=== PATIENT | male | born 1945 | race Caucasian/White ===

== ENCOUNTER 2017-10-07 10:07 | Outpatient (CLI) | payer OTHER ==
[~2017-10-07 10:07] MED LIST: CATAFLAM50 MG PO; COZAAR25 MG
== END 2017-10-07 10:09 | disposition home or self-care (01) ==
LOC: SONOGRAMA 10:07
DX: N18.9 Chronic kidney disease, unspecified (principal)

== ENCOUNTER 2018-01-07 12:25 | Outpatient (CLI) | payer OTHER | END 2018-01-07 16:01 | disposition home or self-care (01) | LOC: RAD 12:25 | DX: M25.561 Pain in right knee (principal) ==

== ENCOUNTER 2020-09-14 11:04 | Emergency (ER) | payer OTHER ==
[~2020-09-14] VITALS: Ht 182.9 cm; Wt 81.6 kg
[2020-09-14] MEDS ORDERED: GLIMEPIRIDE2 MG PO (11:18)
== END 2020-09-14 14:08 | disposition home or self-care (01) ==
LOC: ER 11:04
DX: L03.012 Cellulitis of left finger (principal); S61.24 Puncture wound with foreign body of finger without damage to nail; V00-Y99 External causes of morbidity

== ENCOUNTER → 2021-02-23 10:59 | Outpatient (CLI) | payer OTHER ==
[~2021-02-23 10:59] MED LIST changes: +GLIMEPIRIDE2 MG PO
== END | disposition home or self-care (01) ==
LOC: RAD 10:59
PROVIDERS: ATTEND Internal Medicine Nephrology
DX: M25.811 Other specified joint disorders, right shoulder (principal); S49.90XA Unspecified injury of shoulder and upper arm, unspecified arm, initial encounter

== ENCOUNTER 2021-10-03 09:37 | Outpatient (CLI) | payer OTHER | END 2021-10-03 09:41 | disposition home or self-care (01) | LOC: RAD 09:37 | DX: M25.561 Pain in right knee (principal); M25.562 Pain in left knee ==

== ENCOUNTER → 2021-10-04 09:11 | Outpatient (CLI) | payer OTHER | END | disposition home or self-care (01) | LOC: LAB 09:11 | PROVIDERS: ATTEND Internal Medicine Nephrology | DX: R80.9 Proteinuria, unspecified (principal); I12.9 Hypertensive chronic kidney disease with stage 1 through stage 4 chronic kidney disease, or unspecified chronic kidney disease ==

== ENCOUNTER 2022-10-28 09:47 | Emergency (ER) | payer OTHER ==
[~2022-10-28] VITALS: Ht 175.3 cm; Wt 74.8 kg
== END 2022-10-28 14:57 | disposition home or self-care (01) ==
LOC: ER 09:47
DX: L02.415 Cutaneous abscess of right lower limb (principal); E11.9 Type 2 diabetes mellitus without complications; Z79.84 Long term (current) use of oral hypoglycemic drugs

== ENCOUNTER 2023-05-20 18:56 | Emergency (ER) | payer OTHER ==
[~2023-05-20] VITALS: Ht 182.9 cm; Wt 77.1 kg
[2023-05-20 20:49] LABS: HEMATOCRIT 33.7 % (39.0-48.0); HEMOGLOBIN 10.9 g/dL (13-16.00); MEAN CELL VOLUME 90.6 fL (80.0-100.00); MEAN CORPUSCULAR HEMOGLOBIN 29.3 pg (27.00-32.0); MEAN CORPUSCULAR HGB CONC 32.3 g/dl (32.0-36.0); PLATELET COUNT 191 K/uL (150-450); RED BLOOD COUNT 3.71 M/uL (4.00-6.00)
[2023-05-20 20:50] LABS: PH,URINE 5.5 (5.0-8.0); URINE APPEARANCE Clear; URINE BILIRRUBIN Negative (NEGATIVE); URINE BLOOD Trace; URINE COLOR Yellow; URINE GLUCOSE Negative (NEGATIVE); URINE LEUKOCYTE Negative; URINE NITRATE Negative; URINE PROTEIN Negative (NEGATIVE); URINE UROBILINOGEN 0.2 E.U./dl
[2023-05-20 20:59] LABS: URINE BACTERIA 0 uL (0.0-1933); URINE EPITHELIAL CELLS 0.9 uL (0.0-38.8); URINE RBC 0.2 uL (0.0-20.8); URINE WBC 3.2 uL (0.0-23.2)
[2023-05-20 21:14] LABS: CALCIUM 9.3 mg/dL (8.5-10.1); CREATININE SERUM 1.68 mg/dL (0.70-1.30); GFR 39.51; POTASSIUM 4.2 mEq/L (3.5-5.1)
[2023-05-21 01:26] LABS: INR 1.24; PARTIAL THROMBOPLASTIN TIME 34.5 SECONDS (22.0-34.0); PROTHROMBIN TIME 12.8 SECONDS (9.0-11.5)
== END 2023-05-21 11:19 | disposition home or self-care (01) ==
LOC: ER 18:56
PROVIDERS: General Practice
DX: E11.649 Type 2 diabetes mellitus with hypoglycemia without coma (principal); Z79.84 Long term (current) use of oral hypoglycemic drugs; Z20.822 Contact with and (suspected) exposure to COVID-19

== ENCOUNTER 2024-10-25 10:08 | Inpatient (IN) | payer OTHER ==
[~2024-10-25] VITALS: Ht 182.9 cm; Wt 63.5 kg
[2024-10-25 12:58] LABS: HEMATOCRIT 28.3 % (39.0-48.0); HEMOGLOBIN 9.9 g/dL (13-16.00); MEAN CELL VOLUME 89.2 fL (80.0-100.00); MEAN CORPUSCULAR HEMOGLOBIN 31.3 pg (27.00-32.0); MEAN CORPUSCULAR HGB CONC 35.1 g/dl (32.0-36.0); PLATELET COUNT 286 K/uL (150-450); RED BLOOD COUNT 3.17 M/uL (4.00-6.00); RED CELL DISTRIBUTION WIDTH 13.1 % (11.5-14.5)
[2024-10-25 13:17] LABS: ALBUMIN 3.3 gm/dL (3.4-5.0); BILIRUBIN TOTAL 0.41 mg/dL (0.3-1.2); CREATININE SERUM 3.63 mg/dL (0.70-1.30); GFR 16.2; GLOBULINA 4.3 G/DL (2.4-3.5); POTASSIUM 5.51 mEq/L (3.5-5.1); TOTAL PROTEIN 7.6 gm/dL (6.4-8.2)
[2024-10-25 13:30] LABS: CALCIUM 13.9 mg/dL (8.5-10.1)
[2024-10-25] MEDS ORDERED: 0.9 % SODIUM CHLORIDE 1,000 ML IV ONE (13:45)
[2024-10-25] MEDS ORDERED: LEVALBUTEROL HCL 1.25 MG/3 ML SOLUTION IH ONE (14:30)
[2024-10-25] MEDS ORDERED: PIPERACILLIN/TAZOBACTAM SODIUM 3.375 GM VIAL IV ONE (14:30)
[2024-10-25] MEDS ORDERED: 0.9 % SODIUM CHLORIDE 1,000 ML IV SCH (16:15)
[2024-10-25] MEDS ORDERED: SODIUM POLYSTYRENE SULFONATE 30G/8 TSP PO STA (16:19)
[2024-10-25] MEDS ORDERED: INSULIN LISPRO 1,000 UNIT/10 ML UNITS SUBCUTANEO PRN (16:45)
[2024-10-25] MEDS ORDERED: DEXTROSE 50 % IN WATER 0.5 G/ML DISP.SYRIN IV PRN (16:45)
[2024-10-25] MEDS ORDERED: SIMVASTATIN 20 MG TABLET PO SCH (17:00)
[2024-10-25 17:58] LABS: ABG PH 7.409 (7.35-7.45); ABG PO2 76.1 mmHg (80-100); ABG pCO2 46.9 mmHg (35-45)
[2024-10-25 17:59] LABS: BASE EXCESS 3.5 mmol/l; Tco2 30.4 mmol/l; allen test SATISFACTORY; o2 21 %; puncture site RADIAL RIGHT
[2024-10-25 18:01] LABS: SaO2 95.3 %
[2024-10-25 19:17] LABS: CHOL HDL RATIO 3.2 (0-5.0)
[2024-10-25 19:26] LABS: ALBUMIN 3.2 gm/dL (3.4-5.0); BILIRUBIN TOTAL 0.45 mg/dL (0.3-1.2); CREATININE SERUM 3.35 mg/dL (0.70-1.30); GFR 17.77; GLOBULINA 3.8 G/DL (2.4-3.5); PHOSPHOROUS 4.4 mg/dL (2.5-4.9); POTASSIUM 4.4 mEq/L (3.5-5.1); TSH 4.5 uIU/mL (0.358-3.74)
[2024-10-25 21:20] VITALS: BP 164/75; O2SAT 100
[2024-10-25] MEDS ORDERED: NIFEDIPINE 30 MG TAB.SA.OSM PO SCH (22:32)
[2024-10-26] VITALS (9 sets, daily range): BP systolic 121–167; BP diastolic 52–74; O2SAT 97–100
[2024-10-26 03:02] LABS: ALBUMIN 2.8 gm/dL (3.4-5.0); BILIRUBIN TOTAL 0.44 mg/dL (0.3-1.2); CALCIUM 12.3 mg/dL (8.5-10.1); CREATININE SERUM 3.19 mg/dL (0.70-1.30); GFR 18.8; GLOBULINA 3.6 G/DL (2.4-3.5); POTASSIUM 4.76 mEq/L (3.5-5.1); TOTAL PROTEIN 6.4 gm/dL (6.4-8.2)
[2024-10-26] MEDS ORDERED: LEVOTHYROXINE SODIUM 25 MCG TABLET PO SCH (06:00)
[2024-10-26 08:40] LABS: HEMATOCRIT 27.7 % (39.0-48.0); HEMOGLOBIN 9.5 g/dL (13-16.00); MEAN CELL VOLUME 88.1 fL (80.0-100.00); MEAN CORPUSCULAR HEMOGLOBIN 30.4 pg (27.00-32.0); MEAN CORPUSCULAR HGB CONC 34.5 g/dl (32.0-36.0); PLATELET COUNT 258 K/uL (150-450); RED BLOOD COUNT 3.14 M/uL (4.00-6.00); RED CELL DISTRIBUTION WIDTH 13.2 % (11.5-14.5)
[2024-10-26] MEDS ORDERED: AZITHROMYCIN 500 MG VIAL IV SCH (09:00)
[2024-10-26] MEDS ORDERED: TAMSULOSIN HCL 0.4 MG CAP PO SCH (09:00)
[2024-10-26] MEDS ORDERED: IRON FUM,PS/FOLIC/BCOMP,C NO.9 1 CAP CAPSULE PO SCH (09:00)
[2024-10-26] MEDS ORDERED: CEFTRIAXONE SODIUM 2,000 MG VIAL IV SCH (09:00)
[2024-10-26] MEDS ORDERED: ENOXAPARIN SODIUM 30 MG/0.3 ML SYRINGE SUBCUTANEO SCH (09:00)
[2024-10-26] MEDS ORDERED: PANTOPRAZOLE SODIUM 40 MG/VIAL VIAL IV SCH (09:00)
[2024-10-26 09:15] LABS: ALBUMIN 3.1 gm/dL (3.4-5.0); BILIRUBIN TOTAL 0.43 mg/dL (0.3-1.2); CALCIUM 12.5 mg/dL (8.5-10.1); CREATININE SERUM 3.07 mg/dL (0.70-1.30); GFR 19.65; GLOBULINA 3.9 G/DL (2.4-3.5); POTASSIUM 3.96 mEq/L (3.5-5.1)
[2024-10-26] MEDS ORDERED: FEBUXOSTAT 40 MG TABLET PO SCH (10:18)
[2024-10-26 11:31] LABS: URINE WBC 4.7 uL (0.0-23.2)
[2024-10-26 11:32] LABS: URINE EPITHELIAL CELLS 0.4 uL (0.0-38.8); URINE RBC 1.6 uL (0.0-20.8)
[2024-10-26 11:52] LABS: PH,URINE 6.5 (5.0-8.0); URINE APPEARANCE Clear; URINE BILIRRUBIN Negative (NEGATIVE); URINE BLOOD Trace; URINE COLOR Yellow; URINE GLUCOSE Negative (NEGATIVE); URINE KETONE Negative (NEGATIVE); URINE LEUKOCYTE Negative; URINE NITRATE Negative; URINE PROTEIN Trace (NEGATIVE); URINE UROBILINOGEN 0.2 E.U./dl
[2024-10-26 19:43] LABS: TP PLEURAL FLUID 4.7 g/dl
[2024-10-26 19:58] LABS: PLEURAL FLUID APPEARANCE CLOUDY; PLEURAL FLUID COLOR YELLOW
[2024-10-26 20:16] LABS: MONONUCLEAR 87 %; POLYMORPHONUCLEAR 13 %
[2024-10-26 23:38] LABS: ALBUMIN 2.7 gm/dL (3.4-5.0); BILIRUBIN TOTAL 0.33 mg/dL (0.3-1.2); GFR 20.74; GLOBULINA 3.6 G/DL (2.4-3.5); POTASSIUM 4.02 mEq/L (3.5-5.1); TOTAL PROTEIN 6.3 gm/dL (6.4-8.2)
[2024-10-26 23:39] LABS: CREATININE SERUM 2.93 mg/dL (0.70-1.30)
[2024-10-27 04:00] VITALS: BP 143/63; O2SAT 100
[2024-10-27 07:27] VITALS: BP 157/92; O2SAT 98
[2024-10-27 09:08] LABS: IMMUNOGLOBULIN A 609 mg/dL (61-437); IMMUNOGLOBULIN G 1579 mg/dL (603-1613); IMMUNOGLOBULIN M 63 mg/dL (15-143)
[2024-10-27 11:21] VITALS: BP 167/83; O2SAT 100
[2024-10-27 12:00] VITALS: BP 168/74; O2SAT 100
[2024-10-27] MEDS ORDERED: NIFEDIPINE 30 MG TAB.SA.OSM PO STA (13:36)
[2024-10-27 15:05] LABS: kappa lambda r 1.65 (0.26-1.65); kappa light 127.5 mg/L (3.3-19.4); lambda light 77.3 mg/L (5.7-26.3)
[2024-10-27 16:00] VITALS: BP 168/59; O2SAT 100
[2024-10-27] MEDS ORDERED: MIDAZOLAM HCL 2 MG/2 ML VIAL IV PUSH ONE (17:00)
[2024-10-27] MEDS ORDERED: fentaNYL CITRATE 50 MCG/ML AMPUL IV PUSH ONE (17:00)
[2024-10-27] MEDS ORDERED: AMINO ACIDS/PROTEIN HYDROLYS 30 ML BLIST.PACK PO NR (18:00)
[2024-10-27] MEDS ORDERED: QUETIAPINE FUMARATE 25 MG TABLET PO NR (19:00)
[2024-10-27] MEDS ORDERED: LORazepam 2 MG/ML VIAL IV NR (19:00)
[2024-10-28 01:38] VITALS: BP 160/80; O2SAT 96
[2024-10-28 06:38] LABS: HEMATOCRIT 26.2 % (39.0-48.0); HEMOGLOBIN 9.1 g/dL (13-16.00); MEAN CELL VOLUME 89.2 fL (80.0-100.00); MEAN CORPUSCULAR HGB CONC 34.7 g/dl (32.0-36.0); PLATELET COUNT 245 K/uL (150-450); RED BLOOD COUNT 2.94 M/uL (4.00-6.00); RED CELL DISTRIBUTION WIDTH 13.2 % (11.5-14.5)
[2024-10-28 07:05] LABS: ALBUMIN 2.7 gm/dL (3.4-5.0); BILIRUBIN TOTAL 0.48 mg/dL (0.3-1.2); CALCIUM 12.1 mg/dL (8.5-10.1); CREATININE SERUM 2.86 mg/dL (0.70-1.30); GFR 21.33; GLOBULINA 3.7 G/DL (2.4-3.5); MAGNESIUM 1.7 mg/dL (1.8-2.4); PHOSPHOROUS 3.4 mg/dL (2.5-4.9); POTASSIUM 4.26 mEq/L (3.5-5.1); TOTAL PROTEIN 6.4 gm/dL (6.4-8.2)
[2024-10-28 08:42] VITALS: BP 136/70; O2SAT 95
[2024-10-28] MEDS ORDERED: AMINO ACIDS/PROTEIN HYDROLYS 30 ML BLIST.PACK PO SCH (09:00)
[2024-10-28] MEDS ORDERED: NIFEDIPINE 60 MG TAB.SA.OSM PO SCH (09:00)
[2024-10-28] MEDS ORDERED: CALCITONIN,SALMON,SYNTHETIC 400 UNIT/2ML VIAL SUBCUTANEO SCH (09:00)
[2024-10-28] MEDS ORDERED: ZOLEDRONIC ACID 4MG/5ML VIAL IV ONE (10:15)
[2024-10-28] MEDS ORDERED: MAGNESIUM SULFATE IN WATER 50 ML IV NR (10:30)
[2024-10-28] MEDS ORDERED: LORazepam 2 MG/ML VIAL IV ONE (11:15)
[2024-10-28 16:51] VITALS: BP 140/73; O2SAT 100
[2024-10-28] MEDS ORDERED: QUETIAPINE FUMARATE 25 MG TABLET PO SCH (17:00)
[2024-10-28] MEDS ORDERED: QUETIAPINE FUMARATE 25 MG TABLET PO PRN (18:49)
[2024-10-28 19:04] LABS: beta glo ur 0 % (.); gamma glo ur 0 % (.); m spik 0 % (Not Observed)
[2024-10-29 00:54] VITALS: BP 177/87; O2SAT 97
[2024-10-29 06:47] LABS: MEAN CELL VOLUME 86.7 fL (80.0-100.00); MEAN CORPUSCULAR HGB CONC 35.5 g/dl (32.0-36.0); PLATELET COUNT 233 K/uL (150-450); RED CELL DISTRIBUTION WIDTH 13.3 % (11.5-14.5)
[2024-10-29 07:04] LABS: ALBUMIN 2.5 gm/dL (3.4-5.0); BILIRUBIN TOTAL 0.45 mg/dL (0.3-1.2); CALCIUM 11.3 mg/dL (8.5-10.1); CREATININE SERUM 2.59 mg/dL (0.70-1.30); GFR 23.91; GLOBULINA 3.3 G/DL (2.4-3.5); MAGNESIUM 2.1 mg/dL (1.8-2.4); PHOSPHOROUS 3.2 mg/dL (2.5-4.9); POTASSIUM 3.46 mEq/L (3.5-5.1); TOTAL PROTEIN 5.8 gm/dL (6.4-8.2)
[2024-10-29 07:13] LABS: HEMATOCRIT 23.4 % (39.0-48.0); HEMOGLOBIN 8.3 g/dL (13-16.00); MEAN CORPUSCULAR HEMOGLOBIN 30.7 pg (27.00-32.0)
[2024-10-29 09:19] VITALS: BP 155/75; O2SAT 97
[2024-10-29] MEDS ORDERED: POTASSIUM CHLORIDE 20MEQ/100ML H2O PB IV NR (11:00)
[2024-10-29 15:09] LABS: a:g ratio 0.8 (0.7-1.7); alpha 1 g 0.3 g/dL (0.0-0.4); alpha 2 0.8 g/dL (0.4-1.0); beta g 1.4 g/dL (0.7-1.3); gamma g 1.3 g/dL (0.4-1.8); globulin t 3.8 g/dL (2.2-3.9)
[2024-10-29] MEDS ORDERED: LORazepam 2 MG/ML VIAL IV NR (15:30)
[2024-10-29] MEDS ORDERED: FUROsemide 20 MG/2 ML VIAL IV PRN (16:00)
[2024-10-29 19:19] VITALS: BP 100/55; O2SAT 91
[2024-10-30 00:50] VITALS: BP 130/45; O2SAT 100
[2024-10-30 09:31] VITALS: BP 94/51; O2SAT 97
[2024-10-30 16:55] VITALS: BP 136/60
[2024-10-30 20:53] LABS: HEMOGLOBIN 9.4 g/dL (13-16.00); MEAN CELL VOLUME 87.4 fL (80.0-100.00); MEAN CORPUSCULAR HEMOGLOBIN 30.3 pg (27.00-32.0); MEAN CORPUSCULAR HGB CONC 34.7 g/dl (32.0-36.0); PLATELET COUNT 220 K/uL (150-450); RED BLOOD COUNT 3.09 M/uL (4.00-6.00); RED CELL DISTRIBUTION WIDTH 13.6 % (11.5-14.5)
[2024-10-30 21:31] LABS: ALBUMIN 2.6 gm/dL (3.4-5.0); BILIRUBIN TOTAL 0.62 mg/dL (0.3-1.2); CALCIUM 10.8 mg/dL (8.5-10.1); CREATININE SERUM 2.67 mg/dL (0.70-1.30); GFR 23.09; GLOBULINA 3.5 G/DL (2.4-3.5); MAGNESIUM 2.2 mg/dL (1.8-2.4); PHOSPHOROUS 2.5 mg/dL (2.5-4.9); POTASSIUM 3.54 mEq/L (3.5-5.1); TOTAL PROTEIN 6.1 gm/dL (6.4-8.2)
[2024-10-30] MEDS ORDERED: QUETIAPINE FUMARATE 25 MG TABLET PO SCH (21:35)
[2024-10-31 01:06] VITALS: BP 153/57; O2SAT 100
[2024-10-31 07:44] LABS: HEMATOCRIT 24.6 % (39.0-48.0); HEMOGLOBIN 8.8 g/dL (13-16.00); MEAN CELL VOLUME 87.1 fL (80.0-100.00); MEAN CORPUSCULAR HEMOGLOBIN 31.2 pg (27.00-32.0); MEAN CORPUSCULAR HGB CONC 35.7 g/dl (32.0-36.0); PLATELET COUNT 215 K/uL (150-450); RED BLOOD COUNT 2.82 M/uL (4.00-6.00); RED CELL DISTRIBUTION WIDTH 13.7 % (11.5-14.5)
[2024-10-31 07:49] LABS: ALBUMIN 2.4 gm/dL (3.4-5.0); BILIRUBIN TOTAL 0.46 mg/dL (0.3-1.2); CALCIUM 10.4 mg/dL (8.5-10.1); CREATININE SERUM 2.65 mg/dL (0.70-1.30); GFR 23.29; GLOBULINA 3.4 G/DL (2.4-3.5); POTASSIUM 3.18 mEq/L (3.5-5.1); TOTAL PROTEIN 5.8 gm/dL (6.4-8.2)
[2024-10-31 08:40] VITALS: BP 136/80; O2SAT 98
[2024-10-31] MEDS ORDERED: SODIUM CHLORIDE 0.45 % 1,000 ML IV SCH (11:00)
[2024-10-31] MEDS ORDERED: POTASSIUM BICARBONATE/CIT AC 25 MEQ TABLET.EFF PO NR (12:00)
[2024-10-31] MEDS ORDERED: POTASSIUM CHLORIDE 20MEQ/100ML H2O PB IV NR (12:00)
[2024-10-31 13:11] LABS: CALCIUM 10.4 mg/dL (8.5-10.1); CREATININE SERUM 2.58 mg/dL (0.70-1.30); GFR 24.02; POTASSIUM 3.76 mEq/L (3.5-5.1)
[2024-10-31] MEDS ORDERED: AMINO ACIDS 4.25 %/DEXTROSE 5% 1,000 ML PERIFERAL SCH (17:00)
[2024-10-31 17:07] VITALS: BP 165/79
[2024-11-01 01:03] VITALS: BP 157/82; O2SAT 97
[2024-11-01 06:23] LABS: HEMATOCRIT 25.9 % (39.0-48.0); HEMOGLOBIN 9.4 g/dL (13-16.00); MEAN CELL VOLUME 86.3 fL (80.0-100.00); MEAN CORPUSCULAR HEMOGLOBIN 31.1 pg (27.00-32.0); MEAN CORPUSCULAR HGB CONC 36.1 g/dl (32.0-36.0); PLATELET COUNT 190 K/uL (150-450); RED BLOOD COUNT 3.01 M/uL (4.00-6.00); RED CELL DISTRIBUTION WIDTH 13.5 % (11.5-14.5)
[2024-11-01 06:42] LABS: INR 1.06; PARTIAL THROMBOPLASTIN TIME 31.4 SECONDS (22.0-34.0); PROTHROMBIN TIME 11.5 SECONDS (9.0-11.5)
[2024-11-01 07:03] LABS: ALBUMIN 2.3 gm/dL (3.4-5.0); BILIRUBIN TOTAL 0.42 mg/dL (0.3-1.2); BILIRUBIN,CONJUGATED 0.15 mg/dL (0.0-0.2); BILIRUBIN,UNCONJUGATED 0.27 mg/dL (0.0-0.6); CHOL HDL RATIO 1.9 (0-5.0); CREATININE SERUM 2.53 mg/dL (0.70-1.30); GFR 24.57; GLOBULINA 3.3 G/DL (2.4-3.5); MAGNESIUM 1.9 mg/dL (1.8-2.4); POTASSIUM 3.8 mEq/L (3.5-5.1); TOTAL PROTEIN 5.6 gm/dL (6.4-8.2)
[2024-11-01 07:41] VITALS: BP 140/60
[2024-11-01] MEDS ORDERED: TAMS0.4C PO (12:27)
[2024-11-01] MEDS ORDERED: LEVOTHYROXINE25 MCG PO (12:28)
[2024-11-01] MEDS ORDERED: SIMVASTATIN20 MG PO (12:28)
[2024-11-01] MEDS ORDERED: NIFEDIPINE ER30 M1 PO (12:28)
[2024-11-01] MEDS ORDERED: INTEGRA PLUS C1 EACH PO (12:29)
[2024-11-01] MEDS ORDERED: ULORIC80 MG PO (12:29)
[2024-11-01] MEDS ORDERED: PRE PROTEIN1 EACH PO (12:30)
[2024-11-02 19:04] LABS: albu 21.7 % (.); alp 6.9 % (.); alph 2 15.2 % (.); beta 32.3 % (.); gam 23.9 % (.); m spi 0 % (Not Observed); t prot u 12.1 mg/dL (Not Estab.)
== END 2024-11-01 13:56 | disposition home or self-care (01) | DRG 180 ==
LOC: ER 10:11 → ICU 20:37 → ICU-2 20:37 → ICU 21:17 → MEDI 10-27 17:24
PROVIDERS: General Practice; Internal Medicine Hematology & Oncology; Radiology Vascular & Interventional Radiology; ADMIT Internal Medicine; ATTEND Internal Medicine
PROC: BW28ZZZ Computerized Tomography (CT Scan) of Head (ICD-10-PCS; 2024-10-25)
PROC: BW2FZZZ Computerized Tomography (CT Scan) of Neck (ICD-10-PCS; 2024-10-25)
PROC: BW21ZZZ Computerized Tomography (CT Scan) of Abdomen and Pelvis (ICD-10-PCS; 2024-10-25)
PROC: BW24ZZZ Computerized Tomography (CT Scan) of Chest and Abdomen (ICD-10-PCS; 2024-10-25)
PROC: BW4FZZZ Ultrasonography of Neck (ICD-10-PCS; 2024-10-25)
PROC: 0W993ZZ Drainage of Right Pleural Cavity, Percutaneous Approach (ICD-10-PCS; principal; 2024-10-26)
PROC: BH4BZZZ Ultrasonography of Chest Wall (ICD-10-PCS; 2024-10-26)
PROC: 0BBK3ZX Excision of Right Lung, Percutaneous Approach, Diagnostic (ICD-10-PCS; 2024-10-29)
PROC: 30233N1 Transfusion of Nonautologous Red Blood Cells into Peripheral Vein, Percutaneous Approach (ICD-10-PCS; 2024-10-30)
DX: C34.91 Malignant neoplasm of unspecified part of right bronchus or lung (principal); J18.9 Pneumonia, unspecified organism; J90 Pleural effusion, not elsewhere classified; N17.9 Acute kidney failure, unspecified; R59.0 Localized enlarged lymph nodes; R13.19 Other dysphagia; N20.0 Calculus of kidney; E83.52 Hypercalcemia; E78.5 Hyperlipidemia, unspecified; I12.9 Hypertensive chronic kidney disease with stage 1 through stage 4 chronic kidney disease, or unspecified chronic kidney disease; E11.22 Type 2 diabetes mellitus with diabetic chronic kidney disease; N18.32 Chronic kidney disease, stage 3b; Z79.4 Long term (current) use of insulin; E87.5 Hyperkalemia; D64.9 Anemia, unspecified; E03.9 Hypothyroidism, unspecified; N40.0 Benign prostatic hyperplasia without lower urinary tract symptoms; J32.0 Chronic maxillary sinusitis

== ENCOUNTER 2024-12-10 09:00 | Inpatient (IN) | payer OTHER ==
[~2024-12-10] VITALS: Ht 182.9 cm; Wt 55.8 kg
[~2024-12-10 09:00] MED LIST changes: +INTEGRA PLUS C1 EACH PO; +LEVOTHYROXINE25 MCG PO; +NIFEDIPINE ER30 M1 PO; +PRE PROTEIN1 EACH PO; +SIMVASTATIN20 MG PO; +TAMS0.4C PO; +ULORIC80 MG PO
[2024-12-10] MEDS ORDERED: PROAIR RESPICL90 MCG (09:31)
--- NOTE | 2024-12-10 09:31 | NUR ---
PTE ACOMPANADO POR HIJA QUIEN REFIERE QUE PTE TIENE CANCER EN EL PULMON DERECHO MAS VOMITO MIRZA, PTE SE OBSERVA DEBIL Y RESPIRACIONES CORTAS, SAT 90%, SE BHANU SV Y SE UBICA EN ZACH [address] BAR[address] ELEV[address].
--- NOTE | 2024-12-10 09:33 | NUR ---
PTE DE DR. EDDIE SUN.
--- NOTE | 2024-12-10 09:42 | NUR ---
SE LE ORIENTA A PACIENTE SOBRE LA ORDEN MEDICA, REFIERE ENTENDER LAS MISMAS. SE CANALIZA Y SE LE COLOCA EL IVF'S, SE LE BHANU LAS MUETRAS, SE NOTIFICA PARA REALIZA CT Y SE LE COLOCA CANULA NASAL HESHAM LA ORDEN MEDICA.
[2024-12-10 09:45] LABS: ABG PH 7.367 (7.35-7.45); ABG PO2 63.5 mmHg (80-100); ABG pCO2 35.3 mmHg (35-45); BASE EXCESS -4.7 mmol/l; BICARBONATE 19.8 mmol/l (23-25); SaO2 90.8 %; Tco2 20.9 mmol/l
[2024-12-10] MEDS ORDERED: 0.9 % SODIUM CHLORIDE 1,000 ML IV SCH (09:45)
[2024-12-10 10:26] LABS: COVID-19 AG NEGATIVE (NEGATIVE)
[2024-12-10 10:27] LABS: INFLUENZA A AG NEGATIVE (NEGATIVE)
[2024-12-10 10:53] LABS: HEMATOCRIT 24.6 % (39.0-48.0); HEMOGLOBIN 8.3 g/dL (13-16.00); MEAN CELL VOLUME 88.6 fL (80.0-100.00); MEAN CORPUSCULAR HEMOGLOBIN 29.9 pg (27.00-32.0); MEAN CORPUSCULAR HGB CONC 33.8 g/dl (32.0-36.0); PLATELET COUNT 383 K/uL (150-450); RED BLOOD COUNT 2.77 M/uL (4.00-6.00); RED CELL DISTRIBUTION WIDTH 13.6 % (11.5-14.5)
[2024-12-10 11:24] LABS: ALBUMIN 2.5 gm/dL (3.4-5.0); BILIRUBIN TOTAL 0.4 mg/dL (0.3-1.2); CALCIUM 8.7 mg/dL (8.5-10.1); CREATININE SERUM 2.19 mg/dL (0.70-1.30); GFR 29.02; GLOBULINA 4.4 G/DL (2.4-3.5); POTASSIUM 5.55 mEq/L (3.5-5.1); TOTAL PROTEIN 6.9 gm/dL (6.4-8.2)
[2024-12-10 11:58] LABS: allen test SATISFACTORY; mode ROOM AIR; o2 21 %; puncture site RADIAL RIGHT
[2024-12-10] MEDS ORDERED: 0.9 % SODIUM CHLORIDE 500 ML IV ONE (19:00)
[2024-12-10] MEDS ORDERED: FUROsemide 20 MG/2 ML VIAL IV SCH ×2 (19:00→21:00)
[2024-12-10] MEDS ORDERED: ONDANSETRON HCL 4 MG in 0.9 % SODIUM CHLORIDE 50 ML IV PRN (19:15)
[2024-12-10] MEDS ORDERED: METHYLPREDNISOLONE SOD SUCC 125 MG VIAL IV ONE (19:15)
[2024-12-10] MEDS ORDERED: SODIUM POLYSTYRENE SULFONATE 30G/8 TSP PO ONE (19:15)
[2024-12-10] MEDS ORDERED: ACETAMINOPHEN 500 MG GEL..CAP PO PRN (19:15)
[2024-12-10 20:09] LABS: COVID-19 AG NEGATIVE (NEGATIVE)
[2024-12-10 20:14] LABS: INR 1.11
[2024-12-10] MEDS ORDERED: METHYLPREDNISOLONE SOD SUCC 125 MG VIAL ONE (20:17)
[2024-12-10] MEDS ORDERED: FUROsemide 20 MG/2 ML VIAL ONE (20:20)
[2024-12-10] MEDS ORDERED: LEVALBUTEROL HCL 1.25 MG/3 ML SOLUTION IH SCH (21:00)
[2024-12-10] MEDS ORDERED: IPRATROPIUM BROMIDE 0.5 MG/2.5 ML AMPUL.NEB IH SCH (21:00)
[2024-12-11] VITALS (9 sets, daily range): BP systolic 129–145; BP diastolic 65–70; O2SAT 96–100
[2024-12-11] MEDS ORDERED: FAMOTIDINE/PF 20 MG in 0.9 % SODIUM CHLORIDE 8 ML IV PUSH SCH (09:00)
[2024-12-11] MEDS ORDERED: DEXTROSE 50 % IN WATER 0.5 G/ML VIAL IV PRN (09:15)
[2024-12-11] MEDS ORDERED: INSULIN LISPRO 1,000 UNIT/10 ML UNITS SUBCUTANEO PRN (09:15)
[2024-12-12] VITALS (9 sets, daily range): BP systolic 137–162; BP diastolic 72–75; O2SAT 96–100
[2024-12-12] MEDS ORDERED: CEFTRIAXONE SODIUM 2,000 MG in 0.9 % SODIUM CHLORIDE 100 ML IV SCH (16:10)
[2024-12-12 19:53] LABS: HEMATOCRIT 32.8 % (39.0-48.0); HEMOGLOBIN 11.4 g/dL (13-16.00); MEAN CELL VOLUME 87.2 fL (80.0-100.00); MEAN CORPUSCULAR HEMOGLOBIN 30.2 pg (27.00-32.0); MEAN CORPUSCULAR HGB CONC 34.7 g/dl (32.0-36.0); PLATELET COUNT 386 K/uL (150-450); RED BLOOD COUNT 3.77 M/uL (4.00-6.00); RED CELL DISTRIBUTION WIDTH 14.9 % (11.5-14.5)
[2024-12-12 20:17] LABS: ALBUMIN 2.5 gm/dL (3.4-5.0); BILIRUBIN TOTAL 0.45 mg/dL (0.3-1.2); CALCIUM 7.8 mg/dL (8.5-10.1); CREATININE SERUM 2.08 mg/dL (0.70-1.30); GFR 30.8; GLOBULINA 4.7 G/DL (2.4-3.5); MAGNESIUM 1.5 mg/dL (1.8-2.4); POTASSIUM 4.45 mEq/L (3.5-5.1); TOTAL PROTEIN 7.2 gm/dL (6.4-8.2)
[2024-12-13 00:15] VITALS: O2SAT 99
[2024-12-13 03:44] VITALS: BP 142/65; O2SAT 97
[2024-12-13 05:19] VITALS: O2SAT 96
[2024-12-13 06:45] LABS: ALBUMIN 2.3 gm/dL (3.4-5.0); BILIRUBIN TOTAL 0.33 mg/dL (0.3-1.2); CALCIUM 7.6 mg/dL (8.5-10.1); CREATININE SERUM 1.89 mg/dL (0.70-1.30); GFR 34.4; GLOBULINA 4.3 G/DL (2.4-3.5); POTASSIUM 3.79 mEq/L (3.5-5.1); TOTAL PROTEIN 6.6 gm/dL (6.4-8.2)
[2024-12-13 08:15] VITALS: O2SAT 98
[2024-12-13 08:38] VITALS: BP 145/67; O2SAT 98
[2024-12-13] MEDS ORDERED: QUETIAPINE FUMARATE 25 MG TABLET PO NR (12:00)
[2024-12-13] MEDS ORDERED: QUETIAPINE FUMARATE 25 MG TABLET PO SCH (17:00)
[2024-12-13 18:00] VITALS: BP 123/55; O2SAT 100
[2024-12-13 21:23] LABS: PLEURAL FLUID APPEARANCE CLOUDY; PLEURAL FLUID COLOR RED-BLOODY
[2024-12-13 21:24] LABS: TP PLEURAL FLUID 4.6 g/dl
[2024-12-13 22:13] LABS: MONONUCLEAR 80 %; POLYMORPHONUCLEAR 20 %
[2024-12-14] VITALS: BP 126/64; O2SAT 97
[2024-12-14] MEDS ORDERED: LEVOTHYROXINE SODIUM 25 MCG TABLET PO SCH (06:00)
[2024-12-14 07:06] LABS: T4 TOTAL 5.53 UG/DL (4.5-12.1); TSH 3.76 uIU/mL (0.358-3.74)
[2024-12-14 09:11] VITALS: BP 146/73; O2SAT 99
[2024-12-14 20:53] VITALS: BP 158/72
[2024-12-15 01:13] VITALS: BP 122/53; O2SAT 98
[2024-12-15 05:14] LABS: HEMATOCRIT 28.1 % (39.0-48.0); HEMOGLOBIN 9.8 g/dL (13-16.00); MEAN CELL VOLUME 86.5 fL (80.0-100.00); MEAN CORPUSCULAR HEMOGLOBIN 30.1 pg (27.00-32.0); MEAN CORPUSCULAR HGB CONC 34.8 g/dl (32.0-36.0); PLATELET COUNT 312 K/uL (150-450); RED BLOOD COUNT 3.24 M/uL (4.00-6.00); RED CELL DISTRIBUTION WIDTH 14.5 % (11.5-14.5)
[2024-12-15 05:31] LABS: ALBUMIN 2.2 gm/dL (3.4-5.0); BILIRUBIN TOTAL 0.36 mg/dL (0.3-1.2); CALCIUM 7.7 mg/dL (8.5-10.1); CREATININE SERUM 1.99 mg/dL (0.70-1.30); GFR 32.41; GLOBULINA 3.8 G/DL (2.4-3.5); MAGNESIUM 1.6 mg/dL (1.8-2.4); PHOSPHOROUS 2.2 mg/dL (2.5-4.9); POTASSIUM 4.03 mEq/L (3.5-5.1)
[2024-12-15 08:00] VITALS: BP 102/56; O2SAT 100
[2024-12-15] MEDS ORDERED: CEFTRIAXONE SODIUM 2,000 MG VIAL ONE (08:22)
[2024-12-15] MEDS ORDERED: FAMOTIDINE/PF 20 MG/2 ML VIAL ONE (08:22)
[2024-12-15] MEDS ORDERED: MAGNESIUM SULFATE IN WATER 50 ML IV NR (10:00)
[2024-12-15] MEDS ORDERED: POTASSIUM PHOS,M-BASIC-D-BASIC 15 MM in 0.9 % SODIUM CHLORIDE 250 ML IV NR (11:00)
[2024-12-15 18:33] VITALS: BP 134/67; O2SAT 100
[2024-12-16 03:04] VITALS: BP 121/63; O2SAT 98
[2024-12-16] MEDS ORDERED: CEFTRIAXONE SODIUM 2,000 MG VIAL ONE (08:18)
[2024-12-16 09:13] VITALS: BP 147/66; O2SAT 97
[2024-12-16 18:07] VITALS: BP 144/71; O2SAT 96
[2024-12-16] MEDS ORDERED: fentaNYL CITRATE 50 MCG/ML AMPUL IV PUSH ONE (18:45)
[2024-12-17 00:18] VITALS: BP 136/58; O2SAT 97
[2024-12-17 05:55] LABS: HEMATOCRIT 27.2 % (39.0-48.0); HEMOGLOBIN 9.3 g/dL (13-16.00); MEAN CELL VOLUME 87.4 fL (80.0-100.00); MEAN CORPUSCULAR HEMOGLOBIN 29.9 pg (27.00-32.0); MEAN CORPUSCULAR HGB CONC 34.2 g/dl (32.0-36.0); PLATELET COUNT 279 K/uL (150-450); RED BLOOD COUNT 3.11 M/uL (4.00-6.00); RED CELL DISTRIBUTION WIDTH 14.5 % (11.5-14.5)
[2024-12-17 06:48] LABS: ALBUMIN 1.9 gm/dL (3.4-5.0); BILIRUBIN TOTAL 0.22 mg/dL (0.3-1.2); CALCIUM 7.9 mg/dL (8.5-10.1); CREATININE SERUM 1.97 mg/dL (0.70-1.30); GFR 32.79; GLOBULINA 3.9 G/DL (2.4-3.5); MAGNESIUM 2.1 mg/dL (1.8-2.4); PHOSPHOROUS 3.4 mg/dL (2.5-4.9); POTASSIUM 4.94 mEq/L (3.5-5.1); TOTAL PROTEIN 5.8 gm/dL (6.4-8.2)
[2024-12-17 09:36] VITALS: BP 135/65; O2SAT 100
[2024-12-17 17:27] VITALS: BP 145/68; O2SAT 100
[2024-12-18 02:19] VITALS: BP 123/61; O2SAT 99
[2024-12-18 15:55] VITALS: BP 115/62; O2SAT 100
[2024-12-19 02:33] VITALS: BP 116/59; O2SAT 99
[2024-12-19 09:25] VITALS: BP 120/67; O2SAT 97
[2024-12-19 18:02] VITALS: BP 130/60; O2SAT 98
[2024-12-20 02:00] VITALS: BP 131/74; O2SAT 99
[2024-12-20 11:38] VITALS: BP 153/78; O2SAT 98
[2024-12-20 18:13] VITALS: BP 125/67; O2SAT 96
[2024-12-21 01:00] VITALS: BP 136/96; O2SAT 95
[2024-12-21 06:47] LABS: HEMATOCRIT 28.5 % (39.0-48.0); HEMOGLOBIN 9.6 g/dL (13-16.00); MEAN CELL VOLUME 87.9 fL (80.0-100.00); MEAN CORPUSCULAR HEMOGLOBIN 29.7 pg (27.00-32.0); MEAN CORPUSCULAR HGB CONC 33.7 g/dl (32.0-36.0); PLATELET COUNT 316 K/uL (150-450); RED BLOOD COUNT 3.25 M/uL (4.00-6.00); RED CELL DISTRIBUTION WIDTH 13.9 % (11.5-14.5)
[2024-12-21 07:21] LABS: ALBUMIN 1.9 gm/dL (3.4-5.0); BILIRUBIN TOTAL 0.24 mg/dL (0.3-1.2); CALCIUM 8.3 mg/dL (8.5-10.1); CREATININE SERUM 2.16 mg/dL (0.70-1.30); GFR 29.49; GLOBULINA 3.8 G/DL (2.4-3.5); PHOSPHOROUS 3.6 mg/dL (2.5-4.9); POTASSIUM 5.27 mEq/L (3.5-5.1); TOTAL PROTEIN 5.7 gm/dL (6.4-8.2)
[2024-12-21 09:39] VITALS: BP 139/71; O2SAT 97
[2024-12-21] MEDS ORDERED: SODIUM POLYSTYRENE SULFONATE 30G/8 TSP PO ONE (11:45)
[2024-12-21] MEDS ORDERED: IRON FUM,PS/FOLIC/BCOMP,C NO.9 1 CAP CAPSULE PO SCH (13:09)
[2024-12-21] MEDS ORDERED: AMINO ACIDS/PROTEIN HYDROLYS 30 ML BLIST.PACK PO SCH (17:00)
[2024-12-21 17:38] VITALS: BP 130/66; O2SAT 100
[2024-12-22 01:24] VITALS: BP 118/66; O2SAT 96
[2024-12-22 09:42] VITALS: BP 102/59
[2024-12-22 13:55] LABS: ABG PH 7.397 (7.35-7.45); ABG PO2 87.6 mmHg (80-100); ABG pCO2 38.3 mmHg (35-45); BASE EXCESS -1.4 mmol/l; SaO2 96.6 %; Tco2 24.2 mmol/l
[2024-12-22 14:11] LABS: allen test SATISFACTORY; mode ROOM AIR; o2 21 %; puncture site RADIAL RIGHT
[2024-12-22] MEDS ORDERED: fentaNYL CITRATE 50 MCG/ML AMPUL IV PUSH ONE (16:30)
[2024-12-22 22:00] VITALS: BP 100/65
[2024-12-23 01:44] VITALS: BP 123/63; O2SAT 100
[2024-12-23 06:15] LABS: HEMATOCRIT 25.8 % (39.0-48.0); MEAN CELL VOLUME 86.2 fL (80.0-100.00); MEAN CORPUSCULAR HGB CONC 34.3 g/dl (32.0-36.0); PLATELET COUNT 289 K/uL (150-450); RED BLOOD COUNT 2.99 M/uL (4.00-6.00); RED CELL DISTRIBUTION WIDTH 14.1 % (11.5-14.5)
[2024-12-23 06:19] LABS: HEMOGLOBIN 8.8 g/dL (13-16.00); MEAN CORPUSCULAR HEMOGLOBIN 29.4 pg (27.00-32.0)
[2024-12-23 08:30] VITALS: BP 111/62; O2SAT 98
[2024-12-23 16:19] VITALS: BP 102/56
[2024-12-24 01:15] VITALS: BP 110/50; O2SAT 95
[2024-12-24 05:17] LABS: ALBUMIN 1.8 gm/dL (3.4-5.0); BILIRUBIN TOTAL 0.43 mg/dL (0.3-1.2); CALCIUM 7.7 mg/dL (8.5-10.1); GFR 27.15; GLOBULINA 3.6 G/DL (2.4-3.5); MAGNESIUM 1.9 mg/dL (1.8-2.4); PHOSPHOROUS 3.7 mg/dL (2.5-4.9); POTASSIUM 3.71 mEq/L (3.5-5.1); TOTAL PROTEIN 5.4 gm/dL (6.4-8.2)
[2024-12-24 05:25] LABS: CREATININE SERUM 2.32 mg/dL (0.70-1.30)
[2024-12-24] MEDS ORDERED: RINGERS SOLUTION,LACTATED 1,000 ML IV SCH (07:30)
[2024-12-24 08:31] VITALS: BP 127/83; O2SAT 100
[2024-12-24] MEDS ORDERED: ENOXAPARIN SODIUM 30 MG/0.3 ML SYRINGE SUBCUTANEO SCH (09:00)
[2024-12-24 16:08] LABS: PH,URINE 5.5 (5.0-8.0); URINE APPEARANCE Cloudy; URINE BILIRRUBIN Negative (NEGATIVE); URINE BLOOD Negative; URINE COLOR Yellow; URINE GLUCOSE Negative (NEGATIVE); URINE KETONE Negative (NEGATIVE); URINE LEUKOCYTE Trace; URINE NITRATE Negative; URINE PROTEIN 30 (NEGATIVE)
[2024-12-24 16:11] LABS: URINE BACTERIA 315.7 uL (0.0-1933); URINE CAST 2.94 uL (0.0-1.40); URINE EPITHELIAL CELLS 24.8 uL (0.0-38.8); URINE RBC 5.5 uL (0.0-20.8)
[2024-12-24 16:41] VITALS: BP 112/60
[2024-12-25 03:05] VITALS: BP 126/66; O2SAT 99
[2024-12-25 08:00] VITALS: BP 145/88; O2SAT 97
[2024-12-25 17:40] VITALS: BP 155/61
[2024-12-26 01:47] VITALS: BP 127/58; O2SAT 96
[2024-12-26 10:02] VITALS: BP 156/72; O2SAT 100
[2024-12-26 16:44] LABS: BASO % 0.1 % (0.1-1.2); EOS # 0.06 (0.04-0.54); EOS % 0.8 % (0.7-7.0); LYMPH # 0.35 (1.18-3.74); LYMPH % 4.6 % (19.3-53.1); MEAN CORPUSCULAR HEMOGLOBIN 29.5 pg (25.6-32.2); MONO # 0.52 (0.24-0.82); MONO % 6.9 % (4.7-12.5); NEUT # 6.61 (1.56-6.13); NEUT % 87.2 % (34.0-71.1); PLATELET COUNT 285 K/uL (163-369); RED BLOOD COUNT 2.64 M/uL (4.63-6.08)
[2024-12-26 16:50] LABS: HEMATOCRIT 22.6 % (40.1-51.0); HEMOGLOBIN 7.8 g/dL (13.7-17.5)
[2024-12-26] MEDS ORDERED: FUROsemide 20 MG/2 ML VIAL IV SCH (17:00)
[2024-12-26 17:08] LABS: ALBUMIN 1.7 gm/dL (3.4-5.0); BILIRUBIN TOTAL 0.33 mg/dL (0.3-1.2); CALCIUM 7.7 mg/dL (8.5-10.1); CREATININE SERUM 1.95 mg/dL (0.70-1.30); GFR 33.18; GLOBULINA 3.5 G/DL (2.4-3.5); POTASSIUM 4.21 mEq/L (3.5-5.1); TOTAL PROTEIN 5.2 gm/dL (6.4-8.2)
[2024-12-26 17:37] VITALS: BP 146/72
[2024-12-27 01:20] VITALS: BP 152/76
[2024-12-27 09:48] VITALS: BP 134/67; O2SAT 98
[2024-12-27 15:30] VITALS: BP 139/69; O2SAT 100
[2024-12-27] MEDS ORDERED: LEVALBUTEROL HCL 1.25 MG/3 ML SOLUTION IH SCH (17:00)
[2024-12-27] MEDS ORDERED: IPRATROPIUM BROMIDE 0.5 MG/2.5 ML AMPUL.NEB IH SCH (17:00)
[2024-12-27] MEDS ORDERED: PANTOPRAZOLE SODIUM 40 MG TABLET.DR PO SCH (20:10)
[2024-12-28 01:47] VITALS: BP 132/61; O2SAT 97
[2024-12-28 09:57] VITALS: BP 157/70; O2SAT 98
[2024-12-28 10:49] LABS: BASO % 0.3 % (0.1-1.2); EOS # 0.04 (0.04-0.54); EOS % 0.4 % (0.7-7.0); HEMATOCRIT 30.6 % (40.1-51.0); HEMOGLOBIN 10.4 g/dL (13.7-17.5); LYMPH # 0.56 (1.18-3.74); LYMPH % 5.2 % (19.3-53.1); MEAN CORPUSCULAR HEMOGLOBIN 29.3 pg (25.6-32.2); MONO # 0.78 (0.24-0.82); MONO % 7.3 % (4.7-12.5); NEUT # 9.22 (1.56-6.13); NEUT % 86.1 % (34.0-71.1); PLATELET COUNT 289 K/uL (163-369); RED BLOOD COUNT 3.55 M/uL (4.63-6.08); RED CELL DISTRIBUTION WIDTH 13.4 % (11.6-14.4)
[2024-12-28] MEDS ORDERED: AMLODIPINE BESYLATE 5 MG TABLET PO SCH (17:00)
[2024-12-28 17:14] VITALS: BP 130/57; O2SAT 100
[2024-12-28] MEDS ORDERED: fentaNYL CITRATE 50 MCG/ML AMPUL IV PUSH ONE (17:30)
[2024-12-29 00:45] VITALS: BP 163/79; O2SAT 96
[2024-12-29 10:06] VITALS: BP 142/70; O2SAT 96
[2024-12-29 16:53] VITALS: BP 144/64; O2SAT 97
[2024-12-30 00:57] VITALS: BP 130/54; O2SAT 97
[2024-12-30 08:17] VITALS: BP 129/62; O2SAT 98
[2024-12-30 17:30] VITALS: BP 144/65; O2SAT 99
[2024-12-31] VITALS: BP 130/60; O2SAT 95
[2024-12-31 08:40] VITALS: BP 125/69; O2SAT 100
[2024-12-31] MEDS ORDERED: AMLODIPINE BESYL5 MG PO (11:59)
[2024-12-31] MEDS ORDERED: QUETIAPINE FUMA25 MG PO (11:59)
[2024-12-31] MEDS ORDERED: PROTEINEX-18 LI30 ML PO (11:59)
[2024-12-31] MEDS ORDERED: LEVOTHYROXINE25 MCG PO (11:59)
[2024-12-31] MEDS ORDERED: INTEGRA PLUS C1 EACH PO (11:59)
[2024-12-31] MEDS ORDERED: GLIMEPIRIDE1 M1 PO (12:00)
== END 2024-12-31 13:07 | disposition home or self-care (01) | DRG 187 ==
LOC: ER 09:00 → MEDI 19:08
PROVIDERS: Emergency Medicine; General Practice; Internal Medicine; Internal Medicine Endocrinology, Diabetes & Metabolism; Internal Medicine Nephrology; Radiology Vascular & Interventional Radiology; ADMIT Internal Medicine; ATTEND Internal Medicine
PROC: BB24ZZZ Computerized Tomography (CT Scan) of Bilateral Lungs (ICD-10-PCS; principal; 2024-12-10)
PROC: 4A12X4Z Monitoring of Cardiac Electrical Activity, External Approach (ICD-10-PCS; 2024-12-11)
PROC: 30233N1 Transfusion of Nonautologous Red Blood Cells into Peripheral Vein, Percutaneous Approach (ICD-10-PCS; 2024-12-11)
PROC: 3E0F7GC Introduction of Other Therapeutic Substance into Respiratory Tract, Via Natural or Artificial Opening (ICD-10-PCS; 2024-12-12)
PROC: 0W9930Z Drainage of Right Pleural Cavity with Drainage Device, Percutaneous Approach (ICD-10-PCS; 2024-12-13)
PROC: 0W9930Z Drainage of Right Pleural Cavity with Drainage Device, Percutaneous Approach (ICD-10-PCS; 2024-12-16)
DX: J90 Pleural effusion, not elsewhere classified (principal); C34.91 Malignant neoplasm of unspecified part of right bronchus or lung; N17.8 Other acute kidney failure; J94.8 Other specified pleural conditions; R09.02 Hypoxemia; D64.89 Other specified anemias; E87.5 Hyperkalemia; E11.22 Type 2 diabetes mellitus with diabetic chronic kidney disease; N28.9 Disorder of kidney and ureter, unspecified; Z79.4 Long term (current) use of insulin; I12.9 Hypertensive chronic kidney disease with stage 1 through stage 4 chronic kidney disease, or unspecified chronic kidney disease; E78.5 Hyperlipidemia, unspecified; E03.9 Hypothyroidism, unspecified; N18.32 Chronic kidney disease, stage 3b; R59.0 Localized enlarged lymph nodes

== ENCOUNTER 2025-01-22 10:30 | Inpatient (IN) | payer OTHER ==
[~2025-01-22] VITALS: Ht 188 cm; Wt 45.4 kg
[~2025-01-22 10:30] MED LIST changes: +AMLODIPINE BESYL5 MG PO; +GLIMEPIRIDE1 M1 PO; +PROAIR RESPICL90 MCG; +PROTEINEX-18 LI30 ML PO; +QUETIAPINE FUMA25 MG PO
--- NOTE | 2025-01-22 10:50 | NUR ---
SE RECIBE PACIENTE MASCULINO DE 80 ANOS DE EDAD EN AMBULANCIA CON QUEJA PRINCIPAL DE HEMOPTISIS DESDE EL DORI DE SHRAVAN. HIJA REFIRIO A LOS PARAMEDICOS QUE RICHTER ESTADO EXPECTORANDO VARIAS OCASIONES, SIN PRECISAR CANTIDAD EXACTA, BOB SIN DESCRIBE EL LEHMAN SAI INTENSO. INFORMA DE DOLOR TORACICO. ALERTA Y ORIENTADO, EN APARENTE ESTADO GENERAL ESTABLE. SATURANDO 98%
[2025-01-22] MEDS ORDERED: LEVALBUTEROL HCL 1.25 MG/3 ML SOLUTION IH ONE ×2 (11:15→12:20)
[2025-01-22 11:56] LABS: BASO % 0.1 % (0.1-1.2); HEMOGLOBIN 10.1 g/dL (13.7-17.5); LYMPH # 0.26 (1.18-3.74); LYMPH % 1.9 % (19.3-53.1); MEAN CORPUSCULAR HEMOGLOBIN 29.4 pg (25.6-32.2); MONO # 0.69 (0.24-0.82); MONO % 4.9 % (4.7-12.5); NEUT # 12.89 (1.56-6.13); NEUT % 92.5 % (34.0-71.1); PLATELET COUNT 283 K/uL (163-369); RED BLOOD COUNT 3.43 M/uL (4.63-6.08); RED CELL DISTRIBUTION WIDTH 13.6 % (11.6-14.4)
[2025-01-22 12:18] LABS: INFLUENZA A AG NEGATIVE (NEGATIVE); INFLUENZA B AG NEGATIVE (NEGATIVE)
[2025-01-22 12:34] LABS: INR 1.15; PARTIAL THROMBOPLASTIN TIME 24.5 SECONDS (22.0-34.0); PROTHROMBIN TIME 12.4 SECONDS (9.0-11.5)
[2025-01-22 12:36] LABS: ABG PH 7.326 (7.35-7.45); ABG PO2 99.1 mmHg (80-100); ABG pCO2 50.9 mmHg (35-45); BASE EXCESS -0.8 mmol/l; Tco2 27.5 mmol/l
[2025-01-22 12:41] LABS: ALBUMIN 2.4 gm/dL (3.4-5.0); BILIRUBIN TOTAL 0.67 mg/dL (0.3-1.2); CALCIUM 12.1 mg/dL (8.5-10.1); CREATININE SERUM 2.56 mg/dL (0.70-1.30); GFR 24.18; GLOBULINA 4.9 G/DL (2.4-3.5); TOTAL PROTEIN 7.3 gm/dL (6.4-8.2)
[2025-01-22 12:45] LABS: allen test SATISFACTORY; mode ROOM AIR; o2 21 %; puncture site RADIAL RIGHT
[2025-01-22 13:02] LABS: COVID-19 AG NEGATIVE (NEGATIVE)
--- NOTE | 2025-01-22 13:35 | NUR ---
SE BHANU MUESTRAS DE LAB Y SE ADMINISTRA MEDICAMENTO POR ORDEN MEDICA
[2025-01-22] MEDS ORDERED: IPRATROPIUM BROMIDE 0.5 MG/2.5 ML AMPUL.NEB IH SCH (20:28)
[2025-01-22] MEDS ORDERED: 0.9 % SODIUM CHLORIDE 1,000 ML IV SCH (20:30)
[2025-01-22] MEDS ORDERED: AZITHROMYCIN 500 MG in DEXTROSE 5 % IN WATER 250 ML IV SCH (20:39)
[2025-01-22] MEDS ORDERED: CEFTRIAXONE SODIUM 2,000 MG in 0.9 % SODIUM CHLORIDE 100 ML IV SCH (20:39)
[2025-01-22] MEDS ORDERED: ACETAMINOPHEN 500 MG GEL..CAP PO PRN (20:45)
[2025-01-22] MEDS ORDERED: FUROsemide 20 MG/2 ML VIAL IV SCH (21:00)
[2025-01-22 21:58] LABS: URINE APPEARANCE Clear; URINE BILIRRUBIN Negative (NEGATIVE); URINE BLOOD Negative; URINE COLOR Yellow; URINE GLUCOSE Negative (NEGATIVE); URINE KETONE Negative (NEGATIVE); URINE LEUKOCYTE Negative; URINE NITRATE Negative; URINE PROTEIN 30 (NEGATIVE)
[2025-01-22 22:02] LABS: URINE BACTERIA 283.9 uL (0.0-1933); URINE CAST 1.47 uL (0.0-1.40); URINE EPITHELIAL CELLS 4.7 uL (0.0-38.8); URINE WBC 4.7 uL (0.0-23.2)
[2025-01-22] MEDS ORDERED: FUROsemide 20 MG/2 ML VIAL ONE (22:03)
[2025-01-22] MEDS ORDERED: CEFTRIAXONE SODIUM 2,000 MG VIAL ONE (22:03)
[2025-01-22] MEDS ORDERED: AZITHROMYCIN 500 MG VIAL IV ONE (22:03)
[2025-01-22 22:05] LABS: URINE RBC 1.1 uL (0.0-20.8)
[2025-01-23 01:27] LABS: COVID-19 AG NEGATIVE (NEGATIVE)
[2025-01-23 03:00] VITALS: BP 148/65; O2SAT 100
[2025-01-23 04:22] VITALS: BP 148/65; O2SAT 100
[2025-01-23] MEDS ORDERED: LEVOTHYROXINE SODIUM 25 MCG TABLET PO SCH (06:00)
[2025-01-23 08:25] VITALS: BP 163/81; O2SAT 96
[2025-01-23] MEDS ORDERED: PANTOPRAZOLE SODIUM 40 MG/VIAL VIAL IV SCH (09:00)
[2025-01-23] MEDS ORDERED: AMLODIPINE BESYLATE 5 MG TABLET PO SCH (09:00)
[2025-01-23 10:01] LABS: BASO % 0.3 % (0.1-1.2); EOS # 0.01 (0.04-0.54); EOS % 0.1 % (0.7-7.0); HEMATOCRIT 31.5 % (40.1-51.0); HEMOGLOBIN 10.3 g/dL (13.7-17.5); LYMPH # 0.51 (1.18-3.74); LYMPH % 4.1 % (19.3-53.1); MONO # 0.68 (0.24-0.82); MONO % 5.5 % (4.7-12.5); NEUT # 11.08 (1.56-6.13); NEUT % 89.8 % (34.0-71.1); PLATELET COUNT 254 K/uL (163-369); RED BLOOD COUNT 3.55 M/uL (4.63-6.08); RED CELL DISTRIBUTION WIDTH 13.7 % (11.6-14.4)
[2025-01-23] MEDS ORDERED: AZITHROMYCIN 500 MG VIAL IV STA (10:58)
[2025-01-23] MEDS ORDERED: AZITHROMYCIN 500 MG VIAL IV ONE (10:58)
[2025-01-23 15:20] VITALS: BP 139/75; O2SAT 100
[2025-01-24 02:36] VITALS: BP 150/65; O2SAT 100
[2025-01-24] MEDS ORDERED: AZITHROMYCIN 500 MG VIAL IV ONE (07:20)
[2025-01-24 08:08] VITALS: BP 162/74; O2SAT 95
[2025-01-24 08:10] LABS: BASO % 0.2 % (0.1-1.2); EOS # 0.03 (0.04-0.54); EOS % 0.2 % (0.7-7.0); HEMATOCRIT 33.5 % (40.1-51.0); HEMOGLOBIN 10.8 g/dL (13.7-17.5); LYMPH # 0.74 (1.18-3.74); LYMPH % 5.7 % (19.3-53.1); MEAN CORPUSCULAR HEMOGLOBIN 28.7 pg (25.6-32.2); MONO % 6.9 % (4.7-12.5); NEUT # 11.21 (1.56-6.13); NEUT % 86.6 % (34.0-71.1); PLATELET COUNT 264 K/uL (163-369); RED BLOOD COUNT 3.76 M/uL (4.63-6.08); RED CELL DISTRIBUTION WIDTH 13.8 % (11.6-14.4)
[2025-01-24] MEDS ORDERED: AZITHROMYCIN 500 MG VIAL IV SCH (09:00)
[2025-01-24 09:18] LABS: ALBUMIN 2.5 gm/dL (3.4-5.0); BILIRUBIN TOTAL 0.32 mg/dL (0.3-1.2); CALCIUM 11.4 mg/dL (8.5-10.1); CREATININE SERUM 2.3 mg/dL (0.70-1.30); GFR 27.36; GLOBULINA 4.4 G/DL (2.4-3.5); MAGNESIUM 2.2 mg/dL (1.8-2.4); POTASSIUM 4.61 mEq/L (3.5-5.1); TOTAL PROTEIN 6.9 gm/dL (6.4-8.2)
[2025-01-24 16:29] VITALS: BP 130/71; O2SAT 99
[2025-01-24] MEDS ORDERED: AMLODIPINE BESYLATE 5 MG TABLET PO SCH (17:00)
[2025-01-24] MEDS ORDERED: 0.9 % SODIUM CHLORIDE 1,000 ML IV SCH (23:30)
[2025-01-25 01:44] VITALS: BP 145/70; O2SAT 100
[2025-01-25] MEDS ORDERED: AZITHROMYCIN 500 MG VIAL IV ONE (07:43)
[2025-01-25 09:06] VITALS: BP 119/67; O2SAT 97
[2025-01-25 14:39] LABS: ABG PO2 82.8 mmHg (80-100); ABG pCO2 46.9 mmHg (35-45); BASE EXCESS 3.6 mmol/l; BICARBONATE 29.1 mmol/l (23-25); SaO2 96.3 %; Tco2 30.5 mmol/l; o2 21 %; puncture site RADIAL RIGHT
[2025-01-25 14:40] LABS: allen test SATISFACTORY; mode ROOM AIR
[2025-01-25 16:00] VITALS: BP 141/65; O2SAT 100
[2025-01-25] MEDS ORDERED: ENOXAPARIN SODIUM 30 MG/0.3 ML SYRINGE SUBCUTANEO SCH (17:00)
[2025-01-25] MEDS ORDERED: INSULIN LISPRO 1,000 UNIT/10 ML UNITS SUBCUTANEO PRN (20:45)
[2025-01-25] MEDS ORDERED: DEXTROSE 50 % IN WATER 0.5 G/ML VIAL IV PRN (20:45)
[2025-01-26 00:14] VITALS: BP 122/68; O2SAT 98
[2025-01-26] MEDS ORDERED: AZITHROMYCIN 500 MG VIAL IV ONE (06:33)
[2025-01-26 08:50] VITALS: BP 146/68
[2025-01-26] MEDS ORDERED: PANTOPRAZOLE SODIUM 40 MG TABLET.DR PO SCH (09:00)
[2025-01-26] MEDS ORDERED: AMLODIPINE BESYL5 MG PO (12:27)
[2025-01-26] MEDS ORDERED: LEVOTHYROXINE25 MCG PO (12:27)
== END 2025-01-26 16:18 | disposition home or self-care (01) | DRG 919 ==
LOC: ER 10:30 → SEC-K 21:10 → SURG 21:10
PROVIDERS: General Practice; Internal Medicine; ADMIT Internal Medicine; ATTEND Internal Medicine
PROC: BB24ZZZ Computerized Tomography (CT Scan) of Bilateral Lungs (ICD-10-PCS; 2025-01-22)
PROC: 3E0F7GC Introduction of Other Therapeutic Substance into Respiratory Tract, Via Natural or Artificial Opening (ICD-10-PCS; 2025-01-23)
PROC: 0W29X0Z Change Drainage Device in Right Pleural Cavity, External Approach (ICD-10-PCS; principal; 2025-01-24)
DX: T85.618A Breakdown (mechanical) of other specified internal prosthetic devices, implants and grafts, initial encounter (principal); J18.9 Pneumonia, unspecified organism; C34.90 Malignant neoplasm of unspecified part of unspecified bronchus or lung; J91.0 Malignant pleural effusion; R04.2 Hemoptysis; N17.9 Acute kidney failure, unspecified; I12.9 Hypertensive chronic kidney disease with stage 1 through stage 4 chronic kidney disease, or unspecified chronic kidney disease; E11.22 Type 2 diabetes mellitus with diabetic chronic kidney disease; D63.0 Anemia in neoplastic disease; E83.52 Hypercalcemia; N18.32 Chronic kidney disease, stage 3b; E78.5 Hyperlipidemia, unspecified; F43.20 Adjustment disorder, unspecified; Y82.8 Other medical devices associated with adverse incidents; Z87.891 Personal history of nicotine dependence; Z79.84 Long term (current) use of oral hypoglycemic drugs